=== PATIENT | male | born 1980 | race Two or more races ===

== ENCOUNTER 2023-09-10 00:37 | Emergency (ER) | payer SELFPAY ==
[~2023-09-10] VITALS: Ht 175.3 cm; Wt 90.9 kg
[2023-09-10 00:40] VITALS: BP 143/86; PULSE 79; RESP 17; TEMP 97.5
== END 2023-09-10 01:51 | disposition left against medical advice (07) ==
LOC: EMS 00:39
DX: S61.452A Open bite of left hand, initial encounter (principal); S61.451A Open bite of right hand, initial encounter; Z53.21 Procedure and treatment not carried out due to patient leaving prior to being seen by health care provider; W54.0XXA Bitten by dog, initial encounter; Y93.89 Activity, other specified; Y92.89 Other specified places as the place of occurrence of the external cause; Y99.8 Other external cause status

== ENCOUNTER 2024-01-02 05:14 | Day surgery (SDC) | payer OTHER ==
[~2024-01-02] VITALS: Ht 175.3 cm; Wt 86.4 kg
[~2024-01-02 05:14] MED LIST: RINGERS SOLUTION,LACTATED 1,000 ML IV ONE
[2024-01-02] MEDS: ETHYL ALCOHOL 62% ANTISEPTIC NASAL SANITIZER 0.6 ML AMPUL NASAL ONE (06:08)
[2024-01-02] MEDS: CHLORHEXIDINE GLUCONATE 2% TOWELETTE [2'S/6'S] TP ONE (06:08)
[2024-01-02] MEDS: RINGERS SOLUTION,LACTATED 1,000 ML IV ONE (06:09)
[2024-01-02] MEDS ORDERED: MUPIROCIN CALCIUM 2% 22 GM OINTMENT ONE (06:25)
[2024-01-02] MEDS ORDERED: SODIUM CHLORIDE 0.9% 0 ML ONE (06:26)
[2024-01-02] MEDS ORDERED: SODIUM CL IRRIG SOLN BAG 0 ML IRRIG ONE (06:26)
[2024-01-02] MEDS: BUPIVACAINE HCL/PF 0.25% 30 ML VIAL ONE (07:10)
[2024-01-02] MEDS: VANCOMYCIN HCL 1 GM VIAL ONE (07:24)
[2024-01-02] MEDS ORDERED: VANCOMYCIN 1.5 GM/WATER(PEG) 300 ML IV ONE (08:00)
[2024-01-02] MEDS ORDERED: EPHEDrine SULFATE 50 MG/ML VIAL IM ONE (12:00)
[2024-01-02] MEDS ORDERED: GLYCOPYRROLATE 0.2 MG/ML VIAL IM ONE (12:00)
[2024-01-02] MEDS ORDERED: ONDANSETRON HCL 4 MG/2 ML VIAL IVP ONE (12:00)
[2024-01-02] MEDS ORDERED: ROCURONIUM BROMIDE 10 MG/ML 5 ML VIAL IVP ONE (12:00)
[2024-01-02] MEDS ORDERED: PROPOFOL 1% 20 ML VIAL IVP ONE (12:00)
[2024-01-02] MEDS ORDERED: DEXAMETHASONE SOD PHOS 4 MG/ML VIAL IVP ONE (12:00)
[2024-01-02] MEDS ORDERED: FentaNYL CITRATE PF 100 MCG/2 ML VIAL IVP ONE (12:00)
[2024-01-02] MEDS ORDERED: LIDOCAINE/PF 2% 5 ML SYRINGE IVP ONE (12:00)
[2024-01-02] MEDS ORDERED: MIDAZOLAM HCL 2 MG/2 ML VIAL IVP ONE (12:00)
[2024-01-02] MEDS ORDERED: SUGAMMADEX SODIUM 200 MG/2 ML VIAL IVP ONE (12:00)
== END 2024-01-02 10:25 | disposition home or self-care (01) ==
LOC: SURGERY 05:14
PROVIDERS: ATTEND Orthopaedic Surgery
DX: S63.267A Dislocation of metacarpophalangeal joint of left little finger, initial encounter (principal); F12.90 Cannabis use, unspecified, uncomplicated; Z79.899 Other long term (current) drug therapy; X58.XXXA Exposure to other specified factors, initial encounter; Y93.89 Activity, other specified; Y92.89 Other specified places as the place of occurrence of the external cause; Y99.8 Other external cause status
CPT/HCPCS: 20694; J3490 ×7; J2704; J1100; J3010; J2250; J2405; J3370; J7120; J7030